=== PATIENT | female | born 1960 | race Two or more races ===

== ENCOUNTER → 2018-05-09 | Outpatient (CLI) | payer OTHER | END | disposition home or self-care (01) | LOC: CDC 14:13 | DX: Z01.810 Encounter for preprocedural cardiovascular examination (principal); D17.30 Benign lipomatous neoplasm of skin and subcutaneous tissue of unspecified sites; R94.31 Abnormal electrocardiogram [ECG] [EKG] | CPT/HCPCS: 93000 ==

== ENCOUNTER 2018-05-16 11:55 | Day surgery (SDC) | payer OTHER ==
[~2018-05-16] VITALS: Ht 167.6 cm; Wt 89.9 kg
[2018-05-16 12:38] VITALS: BP 138/65
[2018-05-16 16:43] VITALS: BP 116/61
[2018-05-16 17:20] VITALS: BP 120/60
== END 2018-05-16 17:25 | disposition home or self-care (01) ==
LOC: SDC 11:55
PROC: 0JBD0ZZ Excision of Right Upper Arm Subcutaneous Tissue and Fascia, Open Approach (ICD-10-PCS; principal; 2018-05-16)
DX: D17.21 Benign lipomatous neoplasm of skin and subcutaneous tissue of right arm (principal); E66.9 Obesity, unspecified; Z68.31 Body mass index [BMI] 31.0-31.9, adult; Z82.49 Family history of ischemic heart disease and other diseases of the circulatory system; Z82.5 Family history of asthma and other chronic lower respiratory diseases; Z83.3 Family history of diabetes mellitus; Z80.0 Family history of malignant neoplasm of digestive organs
CPT/HCPCS: 88304; J0690; J2405; J3010